=== PATIENT | female | born 1970 | race Caucasian/White ===

== ENCOUNTER 2017-09-10 03:32 | Emergency (ER) | payer MEDICAID ==
[2017-09-10] MEDS ORDERED: Sodium Chloride 0.9% 1,000 ML IV ONE (04:08)
--- NOTE | 2017-09-10 04:09 | C.PDOC ---
History Of Present Illness 47 yo female w/o significant PMHx come in for evaluation of epigastric pain gradually developed for past 24 hours associated with nausea, 2 episodes of non- bilious and non-bloody vomiting early today. Pt reports, "was able to eat orange and can of tuna early today but felt very nauseous after that". Pr admits , (+) cold sx for past 4-5 days associated with nasal congestion, sore throat, dry cough. Otherwise, pt denies high fever, chills, denies headache, vertigo, visual changes, neck pain, drooling, dysphagia, dyspnea, CP, SOB, dyspnea, palpitation, diaphoresis, wheezing, diarrhea, UTI Sx, hematuria, denies recent travel or known sick contact. Denies previous hx of GI ds. At the time of evaluation, appears in pain. Time Seen by Provider: 09/10/17 03:41 Chief Complaint (Nursing): Abdominal Pain History Per: Patient Onset/Duration Of Symptoms: Gradual Past Medical History Reviewed: Historical Data, Nursing Documentation, Vital Signs Vital Signs: Last Vital Signs Temp 98.6 F 09/10/17 07:17 Pulse 80 09/10/17 07:17 Resp 18 09/10/17 07:17 BP 149/91 H 09/10/17 07:17 Pulse Ox 100 09/10/17 07:17 - Medical History PMH: No Chronic Diseases Surgical History: No Surg Hx Family History: States: No Known Family Hx - Social History Hx Tobacco Use: No Hx Alcohol Use: Yes Hx Substance Use: No Review Of Systems Except As Marked, All Systems Reviewed And Found Negative. Constitutional: Negative for: Fever, Chills ENT: Positive for: Nose Discharge, Nose Congestion, Throat Pain. Negative for: Ear Discharge, Throat Swelling Cardiovascular: Negative for: Chest Pain Respiratory: Positive for: Cough. Negative for: Shortness of Breath, Wheezing Gastrointestinal: Positive for: Nausea, Vomiting, Abdominal Pain. Negative for : Diarrhea, Melena, Hematochezia, Hematemesis Genitourinary: Negative for: Dysuria, Frequency Musculoskeletal: Negative for: Neck Pain, Back Pain Skin: Negative for: Rash Neurological: Negative for: Weakness, Numbness, Altered Mental Status, Headache , Dizziness Physical Exam - Physical Exam Appears: Well, Non-toxic, No Acute Distress Skin: Normal Color, Warm, Dry, No Rash Head: Normacephalic Eye(s): bilateral: PERRL Nose: No Flaring, Discharge (B/L nasal congestion) Oral Mucosa: Moist, No Drooling Throat: Erythema (mod B/l), No Drooling Neck: Trachea Midline, Supple Cardiovascular: Rhythm Regular Respiratory: No Decreased Breath Sounds, No Accessory Muscle Use, No Stridor, No Wheezing Gastrointestinal/Abdominal: Soft, Tenderness (epigastric, mod), No Distention, No Guarding, No Rebound Back: No CVA Tenderness Extremity: Normal ROM, No Deformity, No Swelling Neurological/Psych: Oriented x3, Normal Speech ED Course And Treatment - Laboratory Results Result Diagrams: 09/10/17 04:30 09/10/17 04:30 O2 Sat by Pulse Oximetry: 98 Pulse Ox Interpretation: Normal Progress Note: On re-evaluation, pt is afebrile, hemodynamicaly stable. Non- toxic. Tolerate Po well in ED. PulsEOx 99% RA. Neck: SUpple, (-) meningeal sign. ENT: exam c/w acute pharyngitis. Lungs: CTA B/L, BS equal B/L. CVS: (+) S1S2, reg. Abd: benign, (-) guarding, (-) rebound, (-) RLQ tenderness. Back: ( -) CV tenderness. Neuorlogicaly intact. Blood work review, mild leukocytosis with left shift. CMP - normal. UA- normal study. Pt has clinical findings c/w pharyngitis, vomiting , epigastric pain. Parentt advised and ref. to f/u with PMD in 1-2 days for re-evaluation. return to ED if any worsening or new changes. Disposition Counseled Patient/Family Regarding: Studies Performed, Diagnosis, Need For Followup, Rx Given - Disposition Referrals: [facility] [Outside] Disposition: HOME/ ROUTINE Disposition Time: 06:23 Condition: STABLE Additional Instructions: Encourage fluids Bedrest for 2-3 days Brat diet- banana, rice, apple sauce, toast Take medication as prescribed Follow up with PMD in 2-3 days for re-evaluation. return to ED if any worsening or new changes. Prescriptions: Cefdinir [Omnicef] 300 mg PO BID #14 cap Famotidine [Pepcid] 20 mg PO BID #10 tab Ondansetron ODT [Zofran ODT] 1 odt PO BID PRN #6 odt PRN Reason: Nausea/Vomiting Instructions: Pharyngitis (ED), Epigastric Pain (ED) Forms: [employer] (Macedonian) - Clinical Impression Clinical Impression: Pharyngitis, Vomiting, Epigastric abdominal pain
[2017-09-10] MEDS ORDERED: Sodium Chloride 0.9% 1,000 ML ONE (04:28)
[2017-09-10 04:34] LABS: BASO % 0.4 % (0.0-2.0); EOS % 0.3 % (0.0-4.0); HEMATOCRIT 39.8 % (34.0-47.0); LYMPH % 7.6 % (20.0-40.0); MEAN CELL VOLUME 85.8 fL (81.0-99.0); MEAN CORPUSCULAR HEMOGLOBIN 28.9 pg (27.0-31.0); MEAN CORPUSCULAR HGB CONC 33.6 g/dL (33.0-37.0); MONO # 0.3 K/uL (0.0-0.8); NRBC % 0.1 % (0.0-2.0); PLATELET COUNT 356 K/uL (130-400); RED CELL DISTRIBUTION WIDTH 12.4 % (11.5-14.5); WHITE BLOOD COUNT 13.6 K/uL (4.8-10.8)
[2017-09-10 04:40] LABS: ALB/GLOB RATIO 1.4 (1.0-2.1); ALKALINE PHOSPHATASE 73 U/L (38-126); ALT/SGPT 36 U/L (9-52); AST/SGOT 23 U/L (14-36); BLOOD UREA NITROGEN 10 mg/dL (7-17); CALCIUM 8.7 mg/dl (8.6-10.4); CARBON DIOXIDE 27 mmol/L (22-30); CHLORIDE 101 mmol/L (98-107); GFR AFRICAN-AMERICAN > 60; GLUCOSE,RANDOM 126 mg/dL (65-105); RBC URINE 20 /hpf (0-3); SODIUM 136 mmol/L (132-148); TOTAL PROTEIN 7.4 g/dL (6.3-8.3); URINE BACTERIA RARE (<OCC); URINE BILIRUBIN NEGATIVE (NEGATIVE); URINE COLOR Yellow (YELLOW); URINE GLUCOSE (UA) NORMAL (Normal); URINE KETONE 2+ mg/dL (NEGATIVE); URINE LEUKOCYTE ESTERASE NEG Leu/uL (Negative); URINE PROTEIN 1+ mg/dL (NEGATIVE); URINE UROBILINOGEN NORMAL mg/dL (0.2-1.0); WBC URINE 1 /hpf (0-5)
[2017-09-10 04:46] LABS: URINE BLOOD TRACE-INTACT (NEGATIVE)
[2017-09-10 05:16] LABS: EOSINOPHIL 1 % (0-4); NEUTROPHIL 89 % (50-75); REACTIVE LYMPHOCYTES 1 % (0-0); TOTAL CELLS COUNTED 100
[2017-09-10 06:04] VITALS: RESP 18
[2017-09-10] MEDS ORDERED: cefTRIAXone IV 1 gm in Dextros 50 ML IVPB ONE (06:30)
[2017-09-10 07:18] VITALS: BP 149/91; PULSE 80; TEMP 98.6
[2017-09-11 06:15] VITALS: O2SAT 98
== END 2017-09-10 07:36 | disposition home or self-care (01) ==
LOC: C.ER 03:32
DX: J02.9 Acute pharyngitis, unspecified (principal); R11.10 Vomiting, unspecified; R10.13 Epigastric pain
CPT/HCPCS: 80053; 81001; 83690; 84703; 85025; 85610; 85730; 96361; 96374; 96375; 99285; C9113; J0696; J1885; J2405; J7040